=== PATIENT | male | born 1970 | race Two or more races ===

== ENCOUNTER 2020-04-20 13:31 | Emergency (ER) | payer BC, OTHER, SELFPAY ==
[~2020-04-20] VITALS: Ht 175.3 cm; Wt 102.3 kg
[2020-04-20] MEDS ORDERED: LISI10TA4 (13:39)
[2020-04-20] MEDS ORDERED: QVAR80AE8 (13:39)
--- NOTE | 2020-04-20 14:36 | REP ---
Clinical: Pain and swelling . Technique: AP, lateral, bilateral oblique views of the left elbow. Findings: Oblique and lateral views best demonstrate posterior swelling. No obvious acute fracture dislocation. Anterior and posterior fat pads in stable satisfactory position. Impression: Posterior swelling. No obvious acute fracture or dislocation. Electronically Signed by Luis Kilgore MD 04/20/2020 02:28 P
[2020-04-20 15:20] LABS: BASO % 0.3 % (0.0-1.0); EOS # 0.1 10^3/uL (0.0-0.5); EOS % 1.5 % (0.0-3.0); HEMATOCRIT 41.9 % (42.0-52.0); HEMOGLOBIN 14.5 g/dl (13.5-17.5); LYMPH # 1.2 10^3/uL (1.5-5.0); LYMPH % 15.3 % (24.0-44.0); MEAN CORPUSCULAR HEMOGLOBIN 29.5 pg (27.0-33.0); MEAN CORPUSCULAR HGB CONC 34.6 g/dl (32.0-36.5); MEAN CORPUSCULAR VOLUME 85.2 fl (80.0-96.0); MONO # 0.5 10^3/uL (0.0-0.8); MONO % 6.2 % (0.0-5.0); NEUTROPHILS % 76.3 % (36.0-66.0); PLATELET COUNT, AUTOMATED 299 10^3/uL (150-450); RED BLOOD COUNT 4.92 10^6/uL (4.30-6.10); WHITE BLOOD COUNT 7.8 10^3/uL (4.0-10.0)
[2020-04-20 16:10] LABS: ERYTHROCYTE SEDIMENTATION RATE 10 mm/hr (0-15)
[2020-04-20 16:22] VITALS: BP 136/87
== END 2020-04-20 16:40 | disposition home or self-care (01) ==
LOC: M ED 13:31
DX: M70.32 Other bursitis of elbow, left elbow (principal); I10 Essential (primary) hypertension; Z79.899 Other long term (current) drug therapy